=== PATIENT | male | born 1970 | race Two or more races ===

== ENCOUNTER 2021-06-25 13:45 | Emergency (ER) | payer OTHER ==
[~2021-06-25] VITALS: Ht 170.2 cm; Wt 99.8 kg
[2021-06-25] MEDS ORDERED: NORFLEX100MG PO (16:23)
[2021-06-25] MEDS ORDERED: KETO10TA2 PO (16:23)
== END 2021-06-25 16:36 | disposition home or self-care (01) ==
LOC: ER 13:45
DX: M25.512 Pain in left shoulder (principal)

== ENCOUNTER 2023-09-15 08:58 | Outpatient (CLI) | payer OTHER ==
[~2023-09-15 08:58] MED LIST: KETO10TA2 PO; NORFLEX100MG PO
== END 2023-09-15 09:01 | disposition home or self-care (01) ==
LOC: SONOGRAMA 08:58
PROVIDERS: ATTEND Pathology Anatomic Pathology
DX: D34 Benign neoplasm of thyroid gland (principal); E07.89 Other specified disorders of thyroid; E04.8 Other specified nontoxic goiter